=== PATIENT | male | born 1975 | race Caucasian/White ===

== ENCOUNTER 2022-02-11 13:09 | Emergency (ER) | payer OTHER ==
[~2022-02-11] VITALS: Ht 190.5 cm; Wt 100.0 kg
[2022-02-11] MEDS ORDERED: ondansetron/PF 4mg/2ml inj IV ONE (14:15)
[2022-02-11] MEDS ORDERED: glucagon, human recombinant 1mg kit IV ONE (14:15)
[2022-02-11] MEDS ORDERED: LORazepam 2 mg/ml vial IV ONE (14:15)
[2022-02-11] MEDS ORDERED: normal saline 1000ML IV soln IVB ONE (14:15)
[2022-02-11 14:53] LABS: BASOPHILS # (AUTO) 0.1 X10'3 (0-0.2); BASOPHILS % (AUTO) 0.7 % (0-1); EOSINOPHILS # (AUTO) 0.2 X10'3 (0-0.9); EOSINOPHILS % (AUTO) 2.4 % (0-6); HEMATOCRIT 47.2 % (42.0-52.0); HEMOGLOBIN 16.3 g/dl (14.0-17.9); LYMPHOCYTES # (AUTO) 1.2 X10'3 (1.1-4.8); LYMPHOCYTES % (AUTO) 15.7 % (21-51); MEAN CORPUSCULAR HEMOGLOBIN 30.4 PG (27.0-31.0); MEAN CORPUSCULAR HGB CONC 34.6 g/dL (33.0-36.5); MEAN PLATELET VOLUME 7.8 FL (7.4-10.4); MONOCYTES # (AUTO) 0.5 X10'3 (0-0.9); MONOCYTES % (AUTO) 6.3 % (2-12); NEUTROPHILS # (AUTO) 5.9 X10'3 (1.8-7.7); NEUTROPHILS % (AUTO) 74.9 % (42-75); PLATELET COUNT 243 X10'3 (140-440); RED BLOOD COUNT 5.36 X10'6 (4.70-6.10); RED CELL DISTRIBUTION WIDTH 13.6 % (11.5-14.5); WHITE BLOOD COUNT 7.8 X10'3 (4.5-11.0)
[2022-02-11 15:07] LABS: ALBUMIN 4.7 G/DL (3.4-5.0); ANION GAP 10 (8-16); BILIRUBIN,TOTAL 0.7 MG/DL (0.1-1.0); BLOOD UREA NITROGEN 20 MG/DL (7-18); BUN/CREATININE RATIO 19.6 (5.4-32.0); CALCIUM 8.9 MG/DL (8.5-10.1); CHLORIDE 105 MMOL/L (99-107); CREATININE 1.02 MG/DL (0.60-1.10); GLUCOSE 109 MG/DL (70-104); POTASSIUM 3.9 MMOL/L (3.5-5.1); SODIUM 141 MMOL/L (135-145); TOTAL CARBON DIOXIDE 25.8 MMOL/L (24-32); TOTAL PROTEIN 8.3 G/DL (6.4-8.2); eGFR 79 ML/MIN
[2022-02-11 15:08] LABS: ALANINE AMINOTRANSFERASE 50 U/L (12-78); ALBUMIN/GLOBULIN RATIO 1.3 (1.1-1.5); ALKALINE PHOSPHATASE 75 IU/L (46-116); ASPARTATE AMINO TRANSFERASE 25 U/L (10-37)
[2022-02-11] MEDS ORDERED: famotidine/PF 10 mg/ml inj IV ONE (16:00)
[2022-02-11] MEDS ORDERED: fentaNYL/PF 50MCG/1 ML 2ML syringe ONE (16:31)
[2022-02-11] MEDS ORDERED: MIDAZolam 1 MG/ML 5ML VIAL ONE (16:31)
[2022-02-11] MEDS ORDERED: LIDOcaine Viscous 15ml cup ONE (16:31)
[2022-02-11 16:50] VITALS: BP 158/85
[2022-02-11 17:37] VITALS: BP 157/82
[2022-02-11 17:47] VITALS: BP 128/71
[2022-02-11 17:57] VITALS: BP 132/81
[2022-02-11] MEDS ORDERED: PANT-47 PO (18:12)
[2022-02-11 18:52] VITALS: BP 134/76
== END 2022-02-11 18:53 ==
LOC: ER 13:10
DX: T18.108A Unspecified foreign body in esophagus causing other injury, initial encounter (principal); X58.XXXA Exposure to other specified factors, initial encounter; Y93.89 Activity, other specified; Y92.89 Other specified places as the place of occurrence of the external cause; Y99.8 Other external cause status
CPT/HCPCS: 36415; 43247; 71045; 80053; 85025; 93005; 96361; 96374; 96375; 99152; 99285; C1726; C1769; J1610; J2060; J2250; J2405; J3010; J3490; J7030; Z7512; A4620

== ENCOUNTER 2022-06-17 07:24 | Day surgery (SDC) | payer OTHER ==
[2022-06-17] VITALS (9 sets, daily range): BP systolic 128–158; BP diastolic 80–93
[~2022-06-17] VITALS: Ht 190.5 cm; Wt 110.9 kg
[~2022-06-17 07:24] MED LIST: BUPIVAcaine/PF 2.5 mg/ml (0.25%) 30ml vial ONE; BUSP10TA11 PO; CHOL400T57 PO; MIRT-116 PO; PANT20TA2 PO; SERT100T PO; ceFAZolin inj. 2,000 MG in dextrose 5%-water 100 ML IV ONE; famotidine 20mg tablet PO ONE; ringers solution, lacted 1,000 ML IV SCH
[2022-06-17 08:54] LABS: BASOPHILS % (AUTO) 0.8 % (0-1); EOSINOPHILS # (AUTO) 0.4 X10'3 (0-0.9); EOSINOPHILS % (AUTO) 8.1 % (0-6); LYMPHOCYTES # (AUTO) 1.4 X10'3 (1.1-4.8); LYMPHOCYTES % (AUTO) 24.8 % (21-51); MEAN CORPUSCULAR HEMOGLOBIN 30.2 PG (27.0-31.0); MEAN CORPUSCULAR VOLUME 88.9 FL (78-98); MEAN PLATELET VOLUME 7.8 FL (7.4-10.4); MONOCYTES # (AUTO) 0.6 X10'3 (0-0.9); MONOCYTES % (AUTO) 10.4 % (2-12); NEUTROPHILS # (AUTO) 3.1 X10'3 (1.8-7.7); NEUTROPHILS % (AUTO) 55.9 % (42-75); PRE OP HEMATOCRIT 43.8 % (42.0-52.0); PRE OP HEMOGLOBIN 14.9 g/dL (14.0-17.9); PRE OP PLATELET COUNT 203 X10'3 (140-440); RED BLOOD COUNT 4.92 X10'6 (4.70-6.10)
[2022-06-17 08:59] LABS: ALBUMIN 4.1 G/DL (3.4-5.0); ALBUMIN/GLOBULIN RATIO 1.4 (1.1-1.5); ALKALINE PHOSPHATASE 70 IU/L (46-116); BLOOD UREA NITROGEN 14 MG/DL (7-18); CALCIUM 9.1 MG/DL (8.5-10.1); CHLORIDE 105 MMOL/L (99-107); CREATININE 1.08 MG/DL (0.60-1.10); PRE OP ALT 58 U/L (30-65); PRE OP ANION GAP 7 (8-16); PRE OP AST 38 U/L (10-37); PRE OP BILIRUB, TOTAL 0.6 MG/DL (0.0-1.0); PRE OP GLUCOSE 110 MG/DL (70-104); PRE OP POTASSIUM 4.3 MMOL/L (3.4-5.1); PRE OP SODIUM 139 MMOL/L (135-145); TOTAL CARBON DIOXIDE 27.2 MMOL/L (24-32); eGFR 74 ML/MIN
[2022-06-17 09:21] LABS: CLARITY,URINE CLEAR (Clear); COLOR,URINE YELLOW (Yellow); GLUCOSE, URINE NEGATIVE (Neg); KETONES,URINE NEGATIVE (Neg); LEUKOCYTE ESTERASE ,URINE NEGATIVE (Neg); NITRITES, URINE NEGATIVE (Neg); OCCULT BLOOD,URINE NEGATIVE (Neg); PROTEIN,URINE NEGATIVE (Neg); UROBILINOGEN,URINE 0.2 E.U/dL (0.2-1.0)
[2022-06-17 09:29] LABS: UA COLLECTION TYPE URINAL
[2022-06-17] MEDS ORDERED: rocuronium 10mg/ml inj IV ONE (10:03)
[2022-06-17] MEDS ORDERED: ondansetron/PF 4mg/2ml inj ONE (10:03)
[2022-06-17] MEDS ORDERED: glycopyrrolate 0.2mg/ml inj ONE (10:03)
[2022-06-17] MEDS ORDERED: fentaNYL/PF 50MCG/1 ML 2ML syringe ONE ×2 (10:03→10:33)
[2022-06-17] MEDS ORDERED: midazolam 1 mg/ML 2ml injection ONE (10:03)
[2022-06-17] MEDS ORDERED: LIDOcaine 2% (20mg/ml) 5ml vial ONE (10:04)
[2022-06-17] MEDS ORDERED: propofol inj 20 ML IV ONE (10:04)
[2022-06-17] MEDS ORDERED: hydrALAZINE 20mg/ml inj. IV ONE (10:25)
[2022-06-17] MEDS ORDERED: hydrALAZINE 20mg/ml inj. IV PRN (11:05)
[2022-06-17] MEDS ORDERED: morphine 2 MG/ML inj. syringe IV PRN (11:05)
[2022-06-17] MEDS ORDERED: fentaNYL/PF 50MCG/1 ML 2ML syringe IV PRN ×2 (11:05)
[2022-06-17] MEDS ORDERED: ondansetron/PF 4mg/2ml inj IV PRN (11:05)
[2022-06-17] MEDS ORDERED: labetalol 20mg/4ml (5mg/ml) syringe IV PRN (11:05)
[2022-06-17] MEDS ORDERED: morphine 4 MG/ML inj SYRINge IV PRN (11:05)
[2022-06-17] MEDS ORDERED: ringers solution, lacted 1,000 ML IV SCH (11:05)
--- NOTE | 2022-06-17 11:14 | NUR ---
Received from OR via [facility] , accompanied by Anesthesiologist and report given by KRISTA Anesthesiologist. PATIENT WAKING UP, HAVING PAIN 01/30-WILL MEDICATE, V/S WNL, PIV 20G LH, DERMABONDED LAPS SITES X3 CLOSED CDI TO ABDOMEN. Addendum: 06/17/22 at 1125 by Robert Callahan RN Amended: Links added.
[2022-06-17] MEDS ORDERED: acetaminophen 1,000mg/100ml IV 100 ML IV ONE (11:30)
--- NOTE | 2022-06-17 11:33 | NUR ---
CHECKED IV AFTER PLACEMENT. MEDICAL STAFF CREDENTIALING COORDINATOR AT BEDSIDE TO WITNESS FLOW
--- NOTE | 2022-06-17 12:15 | NUR ---
PATIENT URINATED 325 CC OF CLEAR YELLOW URINE. AND PERFORMED URINARY BLADDER AND NO URINE NOTED.
--- NOTE | 2022-06-17 12:34 | NUR ---
ALL DISCHARGE CRITERIA HAS BEEN MET. VSS, PAIN AT A TOLERABLE LEVEL, VOIDING AND ABLE TO SAFELY AMBULATE AND TRANSFER SELF. IV TAKEN OUT WITHOUT ANY COMPLICATIONS. ALL DISCHARGE INSTRUCTIONS COVERED WITH PATIENT AND ALL QUESTIONS ANSWERED. PATIENT TAKEN OUT VIA WHEELCHAIR WITH ALL BELONGINGS TO PERSONAL VEHICLE WHERE TRAINING AND DEVELOPMENT DIRECTOR DROVE PATIENT. Addendum: 06/17/22 at 1238 by Robert Callahan RN Amended: Links added.
== END 2022-06-17 12:34 | disposition home or self-care (01) ==
LOC: PAS 07:24 → EEVIPCON 11:45 → PAS 12:34
PROVIDERS: ATTEND Surgery
DX: K40.90 Unilateral inguinal hernia, without obstruction or gangrene, not specified as recurrent (principal); Z79.899 Other long term (current) drug therapy; Z98.890 Other specified postprocedural states; Z88.8 Allergy status to other drugs, medicaments and biological substances; F41.8 Other specified anxiety disorders; F11.90 Opioid use, unspecified, uncomplicated
CPT/HCPCS: 36415; 49650; 80053; 81003; 82948; 85025; C1758; C1781; J0131; J0360; J0690; J2250; J2270; J2405; J2704; J3010; J3490; J7030; J7060; J7120; S2900; Z7506; Z7508; Z7512; A4215; A4618